=== PATIENT | male | born 1960 | race Caucasian/White ===

== ENCOUNTER 2019-05-23 09:39 | Emergency (ER) | payer OTHER ==
[~2019-05-23] VITALS: Ht 172.7 cm; Wt 63.5 kg
[~2019-05-23 09:39] MED LIST: ALPR1TAB2 PO; AMLO10TA8 PO; CARI350T14 PO; CHOL100015 PO; FOLI-17 PO; OXYC15TA PO; TAMS0.4C2 PO
--- NOTE | 2019-05-23 12:17 | NUR ---
LABS DRAWN. URINE CUP PROVIDED. PT STATES HE'S FEELING BETTER, NO ANXIETY OR LIGHTHEADEDNESS AT THIS TIME. CALL LIGHT WITHIN REACH.
--- NOTE | 2019-05-23 12:27 | NUR ---
UA SENT TO LAB. PT RESTING QUIETLY, FAMILY AT BS.
[2019-05-23 12:33] LABS: BASOPHILS # (AUTO) 0.05 x10^3/uL (0-0.1); BASOPHILS % (AUTO) 0 % (0-1); EOSINOPHILS # (AUTO) 0.02 x10^3/uL (0-0.4); EOSINOPHILS % (AUTO) 0 % (1-7); LYMPHOCYTES # (AUTO) 2.37 x10^3/uL (1-3.4); LYMPHOCYTES % (AUTO) 22 % (22-44); MD NO; MEAN CORPUSCULAR HEMOGLOBIN 32.7 pg (27.5-34.5); MEAN CORPUSCULAR HGB CONC 33.5 g/dL (33.2-36.2); MEAN CORPUSCULAR VOLUME 97.6 fL (81-97); MEAN PLATELET VOLUME 9.2 fL (7.4-10.4); MONOCYTES # (AUTO) 0.49 x10^3/uL (0.2-0.8); MONOCYTES % (AUTO) 5 % (2-9); NEUTROPHILS # (AUTO) 7.75 x10^3/uL (1.8-6.8); NEUTROPHILS % (AUTO) 73 % (42-75); PLATELET COUNT 167 x10^3/uL (130-400); RED BLOOD COUNT 4.87 x10^6/uL (4.38-5.82); RED CELL DISTRIBUTION WIDTH 14.4 % (9.4-14.8)
[2019-05-23 12:35] LABS: MICROSCOPIC NOT IND
[2019-05-23 12:39] LABS: ALANINE AMINOTRANSFERASE 18 U/L (12-78); ALBUMIN 3.8 g/dL (3.4-5.0); ANION GAP 7 mmol/L (5-15); CALCIUM 8.8 mg/dL (8.5-10.1); CHLORIDE 102 mmol/L (98-107); CREATININE 0.97 mg/dL (0.7-1.3)
[2019-05-23 12:41] LABS: CULTURE INDICATED? NO
[2019-05-23 12:43] LABS: ALKALINE PHOSPHATASE 54 U/L (45-117); BILIRUBIN,TOTAL 0.4 mg/dL (0.2-1.0); TOTAL PROTEIN 7.8 g/dL (6.4-8.2); TROPONIN I < 0.015 ng/mL (0.000-0.045)
--- NOTE | 2019-05-23 13:24 | NUR ---
ALL RESULTS BACK, PT FOR RECHECK.
[2019-05-23 13:52] VITALS: BP 119/78
== END 2019-05-23 14:59 | disposition home or self-care (01) ==
LOC: ED 10:22
DX: R42 Dizziness and giddiness (principal); F41.1 Generalized anxiety disorder
CPT/HCPCS: 36415; 80053; 81003; 84484; 85025; 93005; 99284